=== PATIENT | female | born 1950 | race American Indian/Alaskan Native ===

== ENCOUNTER 2016-11-30 14:28 | Emergency (ER) | payer MEDICARE ==
[2016-11-30 15:17] VITALS: BMI 26.5
[2016-11-30] MEDS ORDERED: Albuterol-Ipratrop 3 mg / 0.5 (3 ml) UD IH STA ×2 (15:21→15:38)
[2016-11-30 15:25] VITALS: TEMP 98.3
--- NOTE | 2016-11-30 16:01 | ED PDOC ---
Arrival/HPI - General Chief Complaint: Shortness Of Breath Time Seen by Provider: 11/30/16 14:48 Historian: Patient - History of Present Illness Narrative History of Present Illness (Text): 11/30/16 14:50 A 66 year old female presents to the emergency complaining of a cough, generalized body aches and chills since yesterday. Cough is intermittent and productive with white sputum. Patient denies any known fever, chest pain, abdominal pain, shortness of breath, nausea, vomiting, or any other complaints at this time. Patient has a history of extensive smoking. PMD: Dr. Odonnell Time/Duration: 24 hours Symptom Onset: Sudden Symptom Course: Unchanged Quality: Other Activities at Onset: Rest Context: Home Past Medical History - Provider Review Nursing Documentation Reviewed: Yes - Cardiac Hx Hypertension: Yes - Endocrine/Metabolic Hx Hyperthyroidism: Yes - Psychiatric Hx Substance Use: Yes - Anesthesia Hx Anesthesia: No Family/Social History - Physician Review Nursing Documentation Reviewed: Yes Family/Social History: No Known Family HX Smoking Status: Heavy Smoker > 10 Cigarettes Daily Hx Alcohol Use: Yes Frequency of alcohol use: Socially Hx Substance Use: Yes Substance used: marijuana Allergies/Home Meds Allergies/Adverse Reactions: Allergies ergotamine Allergy (Verified 11/30/16 15:19) ANAPHYLAXIS nifedipine [From Procardia] Allergy (Verified 11/30/16 15:19) ANAPHYLAXIS acetaminophen [From Tylenol] Adverse Reaction (Verified 11/30/16 15:19) RASH Review of Systems - Physician Review All systems were reviewed & negative as marked: Yes - Review of Systems Constitutional: Other (chills). absent: Fevers Respiratory: Cough, Sputum. absent: SOB Cardiovascular: absent: Chest Pain Musculoskeletal: Myalgias Physical Exam Vital Signs Reviewed: Yes Vital Signs Temp Pulse Resp BP Pulse Ox 11/30/16 17:00 79 18 136/76 97 11/30/16 15:25 98.3 F 86 18 142/71 97 Temperature: Afebrile Blood Pressure: Normal Pulse: Regular Respiratory Rate: Normal Appearance: Positive for: Well-Appearing, Non-Toxic, Comfortable Pain Distress: None Mental Status: Positive for: Alert and Oriented X 3 - Systems Exam Head: Present: Atraumatic, Normocephalic Pupils: Present: PERRL Extroacular Muscles: Present: EOMI Conjunctiva: Present: Normal Mouth: Present: Moist Mucous Membranes Neck: Present: Normal Range of Motion Respiratory/Chest: Present: Good Air Exchange, Wheezes (bilateral exp. wheezing (right greater than left)). No: Respiratory Distress, Accessory Muscle Use Cardiovascular: Present: Regular Rate and Rhythm, Normal S1, S2. No: Murmurs Abdomen: Present: Normal Bowel Sounds. No: Tenderness, Distention, Peritoneal Signs Back: Present: Normal Inspection Upper Extremity: Present: Normal Inspection. No: Cyanosis, Edema Lower Extremity: Present: Normal Inspection. No: Edema Neurological: Present: GCS=15, CN II-XII Intact, Speech Normal Skin: Present: Warm, Dry, Normal Color. No: Rashes Psychiatric: Present: Alert, Oriented x 3, Normal Insight, Normal Concentration Medical Decision Making ED Course and Treatment: 11/30/16 14:50 Impression: A 66 year old female with flu-like symptoms. Differential Diagnosis include but are not limited to: bronchitis vs. pneumonia vs. influenza Plan: -- EKG -- Chest X-ray -- Labs -- Influenza A/B -- Duoneb and Solu-medrol -- Reassess and disposition Progress Notes: EKG: Ordered, reviewed, and independently interpreted the EKG. Rate : 86 BPM Rhythm : NSR Interpretation : No ST-segment elevations or depressions, no T-wave inversions, normal intervals. Comparison : No previous EKG for comparison. 11/30/16 17:05 Chest X-ray: Creator : Deisi Hanley COMPARISON: Comparison is made to the previous study dated 03/19/2016. FINDINGS: LUNGS: No evidence of new infiltrate or consolidation in the lungs. PLEURA: No significant pleural effusion identified, no pneumothorax apparent. CARDIOVASCULAR: Normal. OSSEOUS STRUCTURES: No significant abnormalities. VISUALIZED UPPER ABDOMEN: Normal. OTHER FINDINGS: None. IMPRESSION: No active disease. 11/30/16 17:54 Patient feeling better after treatment. Patient to be discharged with Rx and will follow up with her PMD in 1-2 days for re-evaluation. - Lab Interpretations Lab Results: 11/30/16 16:15 11/30/16 16:15 Lab Results 11/30/16 16:15: WBC 5.6, RBC 4.41, Hgb 14.0, Hct 40.2, MCV 91.2, MCH 31.7, MCHC 34.8, RDW 13.9, Plt Count 231, MPV 10.0, Neutrophils % (Manual) Pending, Lymphocytes % (Manual) Pending, Monocytes % (Manual) Pending, Sodium 135, Potassium 3.6, Chloride 98, Carbon Dioxide 26, Anion Gap 15, BUN 13, Creatinine 0.9, Est GFR ( Amer) > 60, Est GFR (Non-Af Amer) > 60, Random Glucose 102 , Calcium 9.5, Total Bilirubin 0.8, AST 26, ALT 24, Alkaline Phosphatase 67, Troponin I < 0.01, Total Protein 7.6, Albumin 4.1, Globulin 3.5, Albumin/ Globulin Ratio 1.2, Influenza Typ A,B (EIA) Pos for influenza a H I have reviewed the lab results: Yes - RAD Interpretation Radiology Orders: 11/30/16 15:20 CHEST PORTABLE [RAD] Stat - Medication Orders Current Medication Orders: Discontinued Medications Albuterol/Ipratropium (Duoneb 3 Mg/0.5 Mg (3 Ml) Ud) 3 ml IH STAT STA Stop: 11/30/16 15:22 Last Admin: 11/30/16 16:15 Dose: 3 ML Albuterol/Ipratropium (Duoneb 3 Mg/0.5 Mg (3 Ml) Ud) 3 ml IH STAT STA Stop: 11/30/16 15:39 Last Admin: 11/30/16 16:15 Dose: 3 ML Methylprednisolone (Solu-Medrol) 125 mg IVP STAT STA Stop: 11/30/16 15:22 Last Admin: 11/30/16 16:15 Dose: 125 MG IVP Administration Document 11/30/16 16:15 ME (Rec: 11/30/16 16:40 [facility]-[id number]) Charges for Administration # of IVP Administrations 1 - Scribe Statement The provider has reviewed the documentation as recorded by the Scribe Lisa Escalante Provider Scribe Attestation: All medical record entries made by the Scribe were at my direction and personally dictated by me. I have reviewed the chart and agree that the record accurately reflects my personal performance of the history, physical exam, medical decision making, and the department course for this patient. I have also personally directed, reviewed, and agree with the discharge instructions and disposition. Disposition/Present on Arrival - Present on Arrival Any Indicators Present on Arrival: No History of DVT/PE: No History of Uncontrolled Diabetes: No Urinary Catheter: No History of Decub. Ulcer: No History Surgical Site Infection Following: None - Disposition Have Diagnosis and Disposition been Completed?: Yes Diagnosis: Influenza A Disposition: HOME/ ROUTINE Disposition Time: 17:20 Patient Plan: Discharge Condition: IMPROVED Discharge Instructions (ExitCare): Influenza (ED) Additional Instructions: Thank you for letting us take care of you today. Your provider was Dr. Barbosa. You were treated for influenza. The emergency medical care you received today was directed at your acute symptoms. If you were prescribed any medication, please fill it and take as directed. It may take several days for your symptoms to resolve. Return to the Emergency Department if your symptoms worsen, do not improve, or if you have any other problems. Please contact your doctor or call one of the physicians/clinics you have been referred to that are listed on the Patient Visit Information form that is included in your discharge packet. Bring any paperwork you were given at discharge with you along with any medications you are taking to your follow up visit. Our treatment cannot replace ongoing medical care by a primary care provider (PCP) outside of the emergency department. Thank you for allowing the [facility] team to be part of your care today. Follow up with your doctor in 1-2 days for re-evaluation. Prescriptions: Oseltamivir Phosphate [Tamiflu] 75 mg PO BID #10 capsule predniSONE [Prednisone] 40 mg PO DAILY #10 tab Referrals: Marlyn Odonnell MD [Primary Care Provider] - Follow up with primary
[2016-11-30 16:50] LABS: ALB/GLOB RATIO 1.2 (1.1-1.8); ALKALINE PHOSPHATASE 67 U/L (38-133); ALT/SGPT 24 U/L (7-56); AST/SGOT 26 U/L (15-39); BILIRUBIN,TOTAL 0.8 mg/dL (0.2-1.3); BLOOD UREA NITROGEN 13 mg/dL (7-21); CALCIUM 9.5 mg/dL (8.4-10.5); CARBON DIOXIDE 26 mmol/L (21-33); CHLORIDE 98 mmol/L (98-107); GFR AFRICAN-AMERICAN > 60; GLUCOSE,RANDOM 102 mg/dL (70-110); POTASSIUM 3.6 mmol/L (3.6-5.0); SODIUM 135 mmol/L (132-148); TOTAL PROTEIN 7.6 g/dL (5.8-8.3)
[2016-11-30 17:01] LABS: ADD MANUAL DIFF? YES; HEMATOCRIT 40.2 % (36.0-48.0); MEAN CELL VOLUME 91.2 fL (80.0-105.0); MEAN CORPUSCULAR HEMOGLOBIN 31.7 pg (25.0-35.0); MEAN CORPUSCULAR HGB CONC 34.8 g/dl (31.0-37.0); PLATELET COUNT 231 10^3/uL (120.0-450.0); RED CELL DISTRIBUTION WIDTH 13.9 % (11.5-14.5); WHITE BLOOD COUNT 5.6 10^3/ul (4.5-11.0)
--- NOTE | 2016-11-30 17:04 | RAD ---
HISTORY: r/o infiltrate COMPARISON: Comparison is made to the previous study dated 03/19/2016. FINDINGS: LUNGS: No evidence of new infiltrate or consolidation in the lungs. PLEURA: No significant pleural effusion identified, no pneumothorax apparent. CARDIOVASCULAR: Normal. OSSEOUS STRUCTURES: No significant abnormalities. VISUALIZED UPPER ABDOMEN: Normal. OTHER FINDINGS: None. IMPRESSION: No active disease.
[2016-11-30 17:06] LABS: TROPONIN I < 0.01 ng/mL
[2016-11-30 18:17] LABS: BAND 4 % (0-2); BASOPHIL 1 % (0.0-1.0); EOSINOPHIL 1 % (0.0-3.0); NEUTROPHIL 79 % (50.0-70.0)
[2016-11-30 18:18] LABS: PLATELET ESTIMATE NORMAL (NORMAL)
--- NOTE | 2016-11-30 20:55 | CARD ---
APPROVED REPORT EKG Measurement Heart [id number] <Conclusion> Normal sinus rhythm Normal ECG
[2016-11-30 21:44] VITALS: BP 136/75; PULSE 94; RESP 16; O2SAT 96
== END 2016-11-30 18:15 | disposition home or self-care (01) ==
LOC: ED 14:28
DX: J10.1 Influenza due to other identified influenza virus with other respiratory manifestations (principal); F17.210 Nicotine dependence, cigarettes, uncomplicated; I10 Essential (primary) hypertension
CPT/HCPCS: 71010; 80053; 84484; 85025; 87040; 87804; 93005; 96374; 99285; J2930